=== PATIENT | male | born 1960 | race American Indian/Alaskan Native ===

== ENCOUNTER 2019-02-27 06:07 | Day surgery (SDC) | payer BC ==
[~2019-02-27 06:07] MED LIST: ANCEF/STERILE WATER 2 GM/20 ML 2 GM/20 ML SYRINGE IV NR; FLAGYL 500 MG/100 ML 500 MG/100 ML BAG IV NR; LACTATED RINGERS 1,000 ML IV SCH; LOVENOX SUB-Q NR; NEURONTIN PO NR; TRANSDERM-SCOP TD SCH; VERSED IV NR
[2019-02-27] MEDS ORDERED: ANCEF/STERILE WATER 2 GM/20 ML 2 GM/20 ML SYRINGE IV NR (06:30)
[2019-02-27] MEDS ORDERED: FLAGYL 500 MG/100 ML 500 MG/100 ML BAG IV NR (06:30)
[2019-02-27] MEDS ORDERED: NACL BACTERIOSTATIC INFILTRATI ONE (06:40)
[2019-02-27 06:51] LABS: Bilirubin,Urine NEG (Negative); Blood,Urine NEG (Negative); Color,Urine Yellow (Yellow); Mucus,Urine FEW /HPF; Protein,Urine <15 mg/dL mg/dL (Negative); Urobilinogen,Urine < 2.0 mg/dL (<2.0); WBC,Urine < 1.0 /HPF (0.0-6.0)
[2019-02-27] MEDS ORDERED: LOVENOX SUB-Q NR (07:00)
[2019-02-27] MEDS ORDERED: DIPRIVAN 10 MG/ML IV ONE (07:09)
[2019-02-27] MEDS ORDERED: SUBLIMAZE ONE (07:09)
[2019-02-27] MEDS ORDERED: MARCAINE-EPI 0.5%-1:200,000 INFILTRATI ONE ×2 (07:16→08:25)
[2019-02-27] MEDS ORDERED: XYLOCAINE 1% 20 mL ONE (07:16)
[2019-02-27] MEDS ORDERED: QUELICIN ONE (07:28)
[2019-02-27] MEDS ORDERED: XYLOCAINE MPF 2% ONE (07:28)
[2019-02-27] MEDS ORDERED: ROBINUL ONE ×2 (07:28→09:02)
[2019-02-27] MEDS ORDERED: NEO SYNEPHRINE/NS Syringe(OR USE) IV ONE (07:28)
[2019-02-27] MEDS ORDERED: ZEMURON IV ONE (07:28)
[2019-02-27] MEDS ORDERED: DILAUDID IV PRN (08:22)
--- NOTE | 2019-02-27 08:22 | Anesthesia Day of Surgery ---
Anesthesia Day of Surgery - Day of Surgery Patient Examined: Yes Patient H&P Reviewed: Yes Patient is NPO: Yes
--- NOTE | 2019-02-27 08:22 | Anesthesia Consultation ---
Anesthesia Consult and Med Hx Date of service: 02/27/19 - Airway Anesthetic Teeth Evaluation: Good ROM Head & Neck: Adequate Mental/Hyoid Distance: Adequate Mallampati Class: Class II Intubation Access Assessment: Probably Good - Pulmonary Exam CTA: Yes - Cardiac Exam Cardiac Exam: RRR - Pre-Operative Health Status ASA Pre-Surgery Classification: ASA2 Proposed Anesthetic Plan: General - Pulmonary Hx Smoking: No Hx Asthma: Yes (childhood) Hx Respiratory Symptoms: No - Cardiovascular System Hx Hypertension: No Hx Heart Attack/AMI: No - Central Nervous System CVA: No Hx Back Pain: Yes Hx Psychiatric Problems: No - Gastrointestinal Hx Gastroesophageal Reflux Disease: No - Endocrine Hx Renal Disease: No Hx Liver Disease: No Hx Insulin Dependent Diabetes: No Hx Non-Insulin Dependent Diabetes: No Hx Thyroid Disease: No - Other Systems Hx Alcohol Use: Yes Hx Substance Use: No Hx Cancer: Yes (hx prostate ca) - Additional Comments Anesthesia Medical History Comments: No hx anesthetic complications.
[2019-02-27] MEDS ORDERED: XYLOCAINE 1% 20 mL INFILTRATI ONE (08:26)
[2019-02-27] MEDS ORDERED: NACL 0.9% IR ONE (08:26)
[2019-02-27] MEDS ORDERED: BLOXIVERZ ONE (09:02)
[2019-02-27] MEDS ORDERED: PROAIR IH ONE (09:02)
--- NOTE | 2019-02-27 11:01 | Operative Report ---
PREOPERATIVE DIAGNOSIS: Symptomatic ventral hernia. POSTOPERATIVE DIAGNOSIS: Symptomatic ventral hernia. OPERATION: Laparoscopic ventral hernia repair with Ventralight ST mesh, 8 cm. ANESTHESIA: General endotracheal anesthesia. BLEEDING: None. SPECIMENS: None. COMPLICATIONS: None. INDICATIONS FOR THE PROCEDURE: The patient is a 58-year-old male with a history of a robotic prostatectomy in the past. He developed symptomatic ventral/umbilical hernia, which were repaired. He was recommended operative repair. The risks, complications, alternatives were explained to the patient. Informed consent was obtained. DESCRIPTION OF PROCEDURE: The patient was brought to the operating room, where he was placed in the supine position, underwent general endotracheal intubation. He was given preoperative antibiotics and DVT prophylaxis. A time-out was called to ensure proper patient, indication, operation. He was prepped and draped in usual sterile fashion. A Veress needle was inserted into the left upper quadrant after stab incision was made with insufflation pressure of 15 mmHg. Intra-abdominal access was achieved via optical trocar in the right lateral aspect. There was no intra-abdominal injury from the Veress needle. Additional 5 mm port was placed in the right lower and left upper quadrant. He had a small umbilical hernia measuring 2 cm that was reducible with no visible fat in the sac itself. I therefore elected to use a self-fixating Ventralight round patch for this defect. A curvilinear incision was made at the umbilicus and dissected down to the fascia. A 12 mm trocar was then placed and the mesh was introduced into the abdominal cavity. I first attempted to additionally tack the mesh to the anterior abdominal wall using absorbable tacks. However, this did not stay, therefore, I elected to fixate it to the fascia. The air was desufflated. The incision at the umbilicus widened and dissected down to the fascia. The mesh was then secured in place with several #1 PDS sutures. Through this, the air was then reintroduced and the camera was again used to visualize the mesh. The mesh was lying flat. With this, additional PDS suture was placed anteriorly and a 3-0 Vicryl suture was used to reapproximate the umbilical stalk. After this, additional local was injected into all port sites. The ports were removed and the wounds were closed with 4-0 Monocryl. Sterile bandages were placed on top. The patient tolerated the procedure well and was then extubated and left the operating room in stable condition. Counts were correct. FINDINGS: Small 2 cm umbilical hernia. JOB# [id number] YAMILET/GINNY RAMIREZ
--- NOTE | 2019-02-27 14:13 | Post Anesthesia Evaluation ---
- Post Anesthesia Evaluation Patient Participated: Yes Airway Patent: Yes Stable Respiratory Function: Yes Nausea/Vomiting: No Temp > 96.8F: Yes Pain Manageable: Yes Adequeate Hydration: Yes Anesthesia Complications: No
[2019-02-27 20:24] VITALS: BP 131/87
== END 2019-02-27 10:40 | disposition home or self-care (01) ==
LOC: OR 06:07
PROVIDERS: ATTEND Specialist
DX: K43.9 Ventral hernia without obstruction or gangrene (principal); J45.909 Unspecified asthma, uncomplicated; Z79.899 Other long term (current) drug therapy; Z85.46 Personal history of malignant neoplasm of prostate; Z72.89 Other problems related to lifestyle; Z98.890 Other specified postprocedural states
CPT/HCPCS: 49652; 81001; C1781; J0330; J0690; J1170; J1650; J2250; J2370; J2704; J2710; J3010; J7120